=== PATIENT | male | born 1945 | race Caucasian/White ===

== ENCOUNTER 2020-04-01 09:19 | Outpatient (CLI) | payer MEDICARE, SELFPAY ==
[2020-04-01 09:31] LABS: Basophils Absolute Auto 0.03 K/mm3 (0.00-0.10); Basophils Percent Auto 0.4 % (0.0-1.0); Eosinophils Absolute Auto 0.12 K/mm3 (0.02-0.50); Eosinophils Percent Auto 1.8 % (1.0-6.0); Hematocrit 50.6 % (37.0-46.0); Hemoglobin 16.3 g/dL (12.4-15.3); Immature Granulocyte Absolute 0.02 K/mm3 (0.00-0.00); Immature Granulocyte Percent A 0.3 % (0.0-0.0); Lymphocytes Absolute Auto 1.36 K/mm3 (1.10-4.50); Lymphocytes Percent Auto 19.9 % (18.0-42.0); Mean Corpuscular HGB Conc 32.2 g/dL (32.0-36.0); Mean Corpuscular Hemoglobin 30.9 pg (27.0-31.0); Mean Platelet Volume 10.3 fl (8.7-11.0); Monocytes Absolute Auto 0.72 K/mm3 (0.10-0.90); Monocytes Percent Auto 10.5 % (2.0-11.0); Neutrophils Absolute Auto 4.6 K/mm3 (1.7-7.2); Neutrophils Percent Auto 67.1 % (50.0-70.0); Platelet Count Result 208 K/mm3 (150-420); Red Blood Count 5.27 M/mm3 (4.70-6.10); Red Cell Distribution Width 12.4 % (11.6-14.4); White Blood Count 6.8 K/mm3 (4.8-10.8)
[2020-04-01 10:19] LABS: Anion Gap 7 mmol/L (8-16); Blood Urea Nitrogen 13 mg/dL (7-18); Calcium 9.5 mg/dL (8.5-10.1); Carbon Dioxide 31 mmol/L (21-32); Chloride 101 mmol/L (98-108); Cholesterol 146 mg/dL (0-200); Estimated Glomerular Filt Rate > 60; Glucose 104 mg/dL (70-99); HDL Direct 49 mg/dL (40-60); LDL Cholesterol Calculated 73 mg/dL (<130); Osmolality Calculated 288 mOsm/kg (285-295); Potassium 4.8 mmol/L (3.5-5.1); Sodium 139 mmol/L (136-145); Triglycerides 119 mg/dL (0-150)
== END 2020-04-01 09:20 | disposition home or self-care (01) ==
LOC: CHSLAB 09:22
PROVIDERS: PCP Family Medicine; Visit Provider Family Medicine
DX: I10 Essential (primary) hypertension (principal)
CPT/HCPCS: 36415; 80048; 80061; 85025

== ENCOUNTER 2020-04-05 10:18 | Outpatient (CLI) | payer MEDICARE, SELFPAY ==
[2020-04-05 11:30] LABS: Vitamin B12 342 pg/mL (193-986)
[2020-04-05 11:32] LABS: Thyroid Stimulating Hormone Reflex 1.76 u/IU/mL (0.36-3.74)
[2020-04-05 11:33] LABS: Folic Acid > 20.0 ng/mL (8.6->20)
== END 2020-04-05 10:19 | disposition home or self-care (01) ==
LOC: CHSLAB 10:21
PROVIDERS: PCP Family Medicine; Visit Provider Family Medicine
DX: F03.90 Unspecified dementia, unspecified severity, without behavioral disturbance, psychotic disturbance, mood disturbance, and anxiety (principal); R41.89 Other symptoms and signs involving cognitive functions and awareness
CPT/HCPCS: 36415; 82607; 82746; 84443

== ENCOUNTER 2020-04-20 07:51 | Outpatient (CLI) | payer MEDICARE, SELFPAY | END 2020-04-20 07:52 | disposition home or self-care (01) | LOC: CHSIMG 07:55 | PROVIDERS: PCP Family Medicine; Visit Provider Family Medicine | DX: Z53.8 Procedure and treatment not carried out for other reasons (principal) | CPT/HCPCS: 99199 ==

== ENCOUNTER 2020-04-24 06:58 | Outpatient (CLI) | payer MEDICARE, SELFPAY ==
--- NOTE | ~2020-04-24 | MR_ITS ---
EXAMINATION: MR brain/brain stem wo/w con DATE: 04/24/2020 08:10 INDICATION: Signs and symptoms involving cognitive function. Short-term memory loss. Confusion. TECHNIQUE: Magnetic resonance imaging (MRI) of the brain and brainstem was performed without and with 20 mL MultiHance intravenous contrast. Sequences included sagittal and axial T1-weighted FSE, axial diffusion-weighted FS EPI, axial T2*-weighted GRE, axial T2-weighted FLAIR Propeller, and axial T2-we ighted Propeller. Postcontrast sequences included axial and coronal T1-weighted FSE. Apparent diffusi on coefficient (ADC) maps were created. COMPARISON: Head CT 04/11/2019 FINDINGS: There is diffuse brain volume loss. There are scattered areas of nonspecific increased T2-w eighted signal intensity in the cerebral white matter, which is within normal limits for the patient' s age. There is no intracranial hemorrhage, acute infarction, or abnormal intracranial mass lesion. T he ventricles are normal in size. There is mild mucosal thickening in the paranasal sinuses. The orbi ts are normal. The mastoid air cells are normal. IMPRESSION: 1. Normal aging brain. Reviewed, dictated and finalized at location B. 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 Normal aging brain.
== END 2020-04-24 06:59 | disposition home or self-care (01) ==
LOC: CHSIMG 07:00
PROVIDERS: PCP Family Medicine; Visit Provider Family Medicine
DX: R41.89 Other symptoms and signs involving cognitive functions and awareness (principal)
CPT/HCPCS: 70553

== ENCOUNTER 2021-04-28 07:32 | Outpatient (CLI) | payer MEDICARE, SELFPAY ==
--- NOTE | ~2021-04-28 | US_ITS ---
EXAMINATION: US venous doppler LE RT EXAM DATE: 04/28/2021 08:10 INDICATION: Swelling with elevated D-Dimer . TECHNIQUE: Multiple grayscale, color flow and Doppler images of the right lower extremity deep venous system were obtained and reviewed. There is no prior study for comparison. FINDINGS: The right common femoral, femoral and profunda veins demonstrate normal color flow, respira tory variation, augmentation and compressibility. Compressibility, color flow confirmed within the r ight popliteal, posterior tibial, peroneal, and greater saphenous veins. IMPRESSION: 1. No right lower extremity deep venous thrombosis. Reviewed, dictated and finalized at location B. [employer]
== END 2021-04-28 07:33 | disposition home or self-care (01) ==
LOC: CHSIMG 07:37
PROVIDERS: PCP Family Medicine; Visit Provider Family Medicine
DX: M79.89 Other specified soft tissue disorders (principal); R79.1 Abnormal coagulation profile
CPT/HCPCS: 93971

== ENCOUNTER 2021-05-01 09:19 | Outpatient (CLI) | payer MEDICARE, SELFPAY ==
--- NOTE | 2021-05-01 09:23 | ECHO_ITS ---
Patient Info Name: Oziel Cleary Age: 75 years : 1945 Gender: Male Ht: 71 in Wt: 270 lbs BSA: 2.52 m2 HR: 72 bpm BP: 107 / 68 mmHg Exam Date: 05/01/2021 10:54 AM Exam Location: [facility] Patient Status: Outpatient Admit Date: 05/01/2021 Staff Ordering Physician: Alex Cao DO Hotel Operation Manager: Pablo Castellon RDCS, RT Attending Provider: Alex Cao DO Referring Physician: Nash GIRALDO; Exam Type: CA echo dop color flow w con Study Info Indications I50.9 - Heart failure, unspecified Complete two-dimensional, color flow and Doppler transthoracic echocardiogram is performed with contrast to opacify the left ventricle and to improve the deliniation of the left ventricle endocardial borders. Summary 1. Left ventricular chamber dimension is moderately enlarged. 2. Definity contrast administered improved wall motion interpretation. 3. 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 4. Left ventricular systolic function is severely reduced, estimated at 25-30%. 5. The left ventricular diastolic function is grade II diastolic dysfunction. 6. E/e' 11 is mildly elevated. 7. Left atrial chamber dimension is mildly enlarged. 8. There is severe aortic valve sclerosis. 9. There is moderate aortic valve stenosis with a peak velocity of 263.03 cm/s, mean gradient of 16 mmHg, and aortic valve area of 1.04 cm2. Dimensionless index 0.31 suggest aortic valve stenosis is not severe. 10. The mitral valve has mildly calcified annulus. 11. There is mild mitral valve regurgitation. 12. There is mild tricuspid valve regurgitation. 13. Mild pulmonary hypertension, estimated pulmonary arterial systolic pressure is 41 mmHg. 14. There is trace pulmonic regurgitation. Left Ventricle Definity contrast administered improved wall motion interpretation. 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 E/e' 11 is mildly elevated. Left ventricular chamber dimension is moderately enlarged. Left ventricular systolic function is severely reduced, estimated at 25-30%. The left ventricular diastolic function is grade II diastolic dysfunction. Right Ventricle Right ventricular systolic function is normal based on normal TAPSE 1.9 cm. Right ventricular chamber dimension is not well visualized. Left Atria Left atrial chamber dimension is mildly enlarged. Right Atria Right atrial chamber dimension is not well visualized. Aortic Valve There is moderate aortic valve stenosis with a peak velocity of 263.03 cm/s, mean gradient of 16 mmHg, and aortic valve area of 1.04 cm2. Dimensionless index 0.31 suggest aortic valve stenosis is not severe. The aortic valve is trileaflet. There is severe aortic valve sclerosis. There is no aortic valve regurgitation. Pulmonic Valve There is trace pulmonic regurgitation. Mitral Valve The mitral valve has mildly calcified annulus. There is no mitral valve stenosis. There is mild mitral valve regurgitation. Tricuspid Valve There is mild tricuspid valve regurgitation. Mild pulmonary hypertension, estimated pulmonary arterial systolic pressure is 41 mmHg. Pericardium/Pleural There is no pericardial effusion. Inferior Vena Cava Normal inferior vena cava with >50% collapse upon inspiration consistent with normal right atrial pressure, 5 mmHg. Aorta The aortic root size at the sinus of Valsalva is normal. Left Ventricular Outflow Tract
== END 2021-05-01 09:20 | disposition home or self-care (01) ==
PROVIDERS: PCP Family Medicine; Visit Provider Family Medicine
DX: I50.9 Heart failure, unspecified (principal)
CPT/HCPCS: C8929

== ENCOUNTER 2022-01-21 18:03 | Outpatient (CLI) | payer MEDICARE, SELFPAY ==
--- NOTE | ~2022-01-21 | XR_ITS ---
EXAM: XR foot RT 2V DATE: 01/21/2022 18:22 HISTORY: All over RT foot pain/swollen x 4-5 days . COMPARISON: None available. FINDINGS: Decreased mineralization. Transverse fracture of the proximal right fifth metatarsal, 1.5 cm from the end of the tuberosity (borderline between avulsion and Solo type fractures), fracture li ne appears to be proximal to the intermetatarsal joint (a feature of avulsion fractures), with 3 mm d istraction. No lytic or blastic lesion. Joint spaces are maintained. No erosion or periosteal change. Soft tissues within normal limits. IMPRESSION: Mildly distracted transverse fracture of the proximal right fifth metatarsal, probably an avulsion, but a Solo fracture is also possible. An oblique view of the right foot would be helpful for further evaluation. Reviewed, dictated and finalized at location K. IMPRESSION: Mildly distracted transverse fracture of the proximal right fifth m etatarsal, probably an avulsion, but a Solo fracture is also possible. An obli que view of the right foot would be helpful for further evaluation.
== END 2022-01-21 18:04 | disposition home or self-care (01) ==
LOC: CHSIMG 18:05
PROVIDERS: PCP Family Medicine; Visit Provider Nurse Practitioner Family
DX: M79.671 Pain in right foot (principal); M79.89 Other specified soft tissue disorders
CPT/HCPCS: 73620

== ENCOUNTER 2022-02-09 08:51 | Outpatient (CLI) | payer MEDICARE, SELFPAY ==
--- NOTE | ~2022-02-09 | XR_ITS ---
EXAM: XR foot RT min 3V DATE: 02/09/2022 09:11 HISTORY: F/U FX RT foot base pf 5th 1mo ago . COMPARISON: 01/21/2022. FINDINGS: Decreased mineralization. Increasing distraction of the transverse fracture of the proxima l right fifth metatarsal. In the oblique view the fracture line does not definitively involve the int ermetatarsal joint indicating most likely represents an avulsion-type fracture. No lytic or blastic l esion. Moderate hallux valgus. Plantar enthesopathy. No erosion or periosteal change. Vascular calcif ications. IMPRESSION: Increased distraction of the transverse proximal fifth metatarsal fracture. Reviewed, dictated and finalized at location K. IMPRESSION: Increased distraction of the transverse proximal fifth metatarsal f kennedy.
== END 2022-02-09 08:52 | disposition home or self-care (01) ==
LOC: CHSIMG 08:55
PROVIDERS: PCP Family Medicine; Visit Provider Orthopaedic Surgery
DX: M79.671 Pain in right foot (principal)
CPT/HCPCS: 73630

== ENCOUNTER 2022-02-24 13:16 | Outpatient (CLI) | payer MEDICARE, SELFPAY ==
[2022-02-24 14:13] LABS: Anion Gap 7 mmol/L (8-16); Blood Urea Nitrogen 31 mg/dL (7-18); Calcium 9.1 mg/dL (8.5-10.1); Carbon Dioxide 30 mmol/L (21-32); Chloride 101 mmol/L (98-108); Estimated Glomerular Filt Rate 40; Glucose 98 mg/dL (70-99); Osmolality Calculated 292 mOsm/kg (285-295); Potassium 4.7 mmol/L (3.5-5.1); Sodium 138 mmol/L (136-145)
== END 2022-02-24 13:17 | disposition home or self-care (01) ==
LOC: CHSLAB 13:20
PROVIDERS: PCP Orthopaedic Surgery; Visit Provider Internal Medicine Cardiovascular Disease
DX: I50.20 Unspecified systolic (congestive) heart failure (principal)
CPT/HCPCS: 36415; 80048

== ENCOUNTER 2022-04-08 10:40 | Outpatient (CLI) | payer MEDICARE, SELFPAY ==
[2022-04-08 11:26] LABS: Anion Gap 8 mmol/L (8-16); Blood Urea Nitrogen 21 mg/dL (7-18); Carbon Dioxide 27 mmol/L (21-32); Chloride 105 mmol/L (98-108); Estimated Glomerular Filt Rate 51; Glucose 107 mg/dL (70-99); Osmolality Calculated 293 mOsm/kg (285-295); Potassium 4.2 mmol/L (3.5-5.1); Sodium 140 mmol/L (136-145)
== END 2022-04-08 10:41 | disposition home or self-care (01) ==
LOC: CHSLAB 10:42
PROVIDERS: PCP Family Medicine; Visit Provider Internal Medicine Cardiovascular Disease
DX: I50.20 Unspecified systolic (congestive) heart failure (principal)
CPT/HCPCS: 36415; 80048

== ENCOUNTER 2022-07-14 11:28 | Outpatient (CLI) | payer MEDICARE, SELFPAY ==
[2022-07-14 12:42] LABS: Anion Gap 8 mmol/L (8-16); Blood Urea Nitrogen 22 mg/dL (7-18); Calcium 8.8 mg/dL (8.5-10.1); Carbon Dioxide 31 mmol/L (21-32); Chloride 103 mmol/L (98-108); Estimated Glomerular Filt Rate 44; Glucose 108 mg/dL (70-99); Osmolality Calculated 298 mOsm/kg (285-295); Potassium 4.2 mmol/L (3.5-5.1); Sodium 142 mmol/L (136-145)
== END 2022-07-14 11:29 | disposition home or self-care (01) ==
PROVIDERS: PCP Family Medicine; Visit Provider Internal Medicine Cardiovascular Disease
DX: I50.20 Unspecified systolic (congestive) heart failure (principal); N18.30 Chronic kidney disease, stage 3 unspecified
CPT/HCPCS: 36415; 80048

== ENCOUNTER 2022-11-26 23:18 | Emergency (ER) | payer MEDICARE, SELFPAY ==
[2022-11-26 23:23] VITALS: BP 114/55; PULSE 80; RESP 20; TEMP 36.7; O2SAT 95
[2022-11-26 23:29] VITALS: BP 104/59; PULSE 68
--- NOTE | 2022-11-26 23:29 | ED.DIZZY ---
HPI - Dizziness General Chief Complaint: Dizziness Stated Complaint: dizziness and weakness Source: patient and family Mode of arrival: ambulatory History of Present Illness HPI Narrative: this is a 76-year-old male that presents with his after he had an episode of dizziness about an hour so will go in wanted to come to the emergency room to be evaluated. Patient has a history of congestive heart failure recently had his dosage of Entresto adjusted and Lasix. Patient with a history of dementia he is on Aricept. Otherwise denies chest pain, no shortness of breath no abdominal pain currently denies being dizzy and states that he has some sinus congestion with no sinus pressure no ear pressure no fever chills. MD elicited complaint: dizziness Onset (ago): hour(s) Timing: sudden onset Severity: mild Related Data Home Medications Medication Instructions Recorded Confirmed aspirin 81 mg tablet,delayed 324 mg PO DAILY 11/26/22 11/26/22 release sacubitril 49 mg-valsartan 51 mg 1 tablet PO BID 11/26/22 11/26/22 tablet (Entresto) Allergies Allergy/AdvReac Type Severity Reaction Status Date / Time acetaminophen [Vicodin] Allergy Intermediate Unknown Verified 02/09/22 09:55 hydrocodone [Vicodin] Allergy Intermediate Unknown Verified 02/09/22 09:55 Review of Systems Review of Systems: All systems reviewed & are unremarkable except as noted in HPI and below PMFSH Past Medical History Medical History BMI greater than 30 (11/22/17) BPH (benign prostatic hyperplasia) CAD (coronary artery disease) CHF (congestive heart failure) Cognitive decline COPD (chronic obstructive pulmonary disease) Dementia Fracture of 5th metatarsal Hyperlipidemia Hyperlipidemia (11/22/17) Hypertension Hypertension (11/22/17) Insomnia Myocardial infarction CALEB (obstructive sleep apnea) Overweight Right ankle pain Sleep disorder SOB (shortness of breath) on exertion Surgical History Surgical History Hx of CABG Family History Family History Other Alzheimer disease Diabetes mellitus Family history of coronary artery disease HLD (hyperlipidemia) Heart disease Hypertension Social History Social History Smoking status: Former smoker Tobacco type: cigarettes Additional smoking assessment comments: Quit 2005 Alcohol intake: current Substance use type: does not use Living arrangements: with family Additional living arrangements comments: . 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 Gender identity (if verbalized by the patient): Male Exam Const: General: healthy appearing Nutritional Appearance: well nourished Orientation/consciousness: patient oriented x3 Limitations: no limitations HENMT: Head: normal to inspection Eyes: Conjunctivae: conjunctivae normal Neck: Neck: normal visual inspection Chest: Chest palpation & inspection: normal inspection of the chest Resp: Effort & Inspection: normal respiratory effort Auscultation: clear to auscultation bilaterally Cardio: Rate: regular rate Rhythm: regular rhythm GI: Auscultation: normal bowel sounds Back/Spine/Pelvis: Back: no CVA tenderness Skin: General skin exam: normal color Rashes: no rashes Wounds: no wounds Neuro: General: moves all extremities Cranial nerves: Yes Nystagmus not present Speech: normal speech Extrem: General: normal to inspection Psych: Mental Status: mental status grossly normal Affect: normal affect Attitude: cooperative Course Course Emergency Course: EKG performed which shows sinus rhythm at a rate of 67 with a first-degree AV block, labs reviewed with patient and orthostatics were checked, patient is not orthos
[2022-11-26 23:33] VITALS: BP 109/70; PULSE 74
[2022-11-26 23:36] VITALS: BP 105/60; PULSE 76
[2022-11-27 00:01] LABS: Basophils Absolute Auto 0.04 K/mm3 (0.00-0.10); Basophils Percent Auto 0.6 % (0.0-1.0); Eosinophils Absolute Auto 0.18 K/mm3 (0.02-0.50); Eosinophils Percent Auto 2.8 % (1.0-6.0); Hematocrit 37.8 % (37.0-46.0); Hemoglobin 12.4 g/dL (12.4-15.3); Immature Granulocyte Absolute 0.02 K/mm3 (0.00-0.00); Immature Granulocyte Percent A 0.3 % (0.0-0.0); Lymphocytes Absolute Auto 1.39 K/mm3 (1.10-4.50); Lymphocytes Percent Auto 21.5 % (18.0-42.0); Mean Corpuscular HGB Conc 32.8 g/dL (32.0-36.0); Mean Corpuscular Hemoglobin 32.3 pg (27.0-31.0); Mean Corpuscular Volume 98.4 fL (78.0-102.0); Mean Platelet Volume 10.5 fl (8.7-11.0); Monocytes Absolute Auto 0.88 K/mm3 (0.10-0.90); Monocytes Percent Auto 13.6 % (2.0-11.0); Neutrophils Percent Auto 61.2 % (50.0-70.0); Platelet Count Result 162 K/mm3 (150-420); Red Blood Count 3.84 M/mm3 (4.70-6.10); White Blood Count 6.5 K/mm3 (4.8-10.8)
--- NOTE | 2022-11-27 00:01 | ECG_ITS ---
Measurements Intervals [place] Rate: 67 P: 49 AL: 210 QRS: 268 QRSD: 176 T: 65 QT: 425 QTc: 449 Interpretive Statements SINUS RHYTHM WITH FIRST DEGREE AV BLOCK WITH OCCASIONAL SUPRAVENTRICULAR PREMATURE COMPLEXES INDETERMINATE AXIS RIGHT BUNDLE BRANCH BLOCK ANTEROLATERAL MYOCARDIAL INFARCTION , OF INDETERMINATE AGE [40+ ms Q WAVE IN I/aVL/V3- V6] ABNORMAL ECG NO PREVIOUS ECG AVAILABLE FOR COMPARISON Electronically Signed On 11-27-2022 13:45:58 CDT by Darius Chávez M.D.
[2022-11-27 00:22] LABS: Alanine Aminotransferase 25 U/L (16-63); Albumin Level 3.3 g/dL (3.4-5.0); Alkaline Phosphatase 54 U/L (46-116); Anion Gap 8 mmol/L (8-16); Aspartate Amino Transferase 21 U/L (15-37); Bilirubin,Total 0.5 mg/dL (0.00-1.00); Blood Urea Nitrogen 31 mg/dL (7-18); Calcium 8.7 mg/dL (8.5-10.1); Carbon Dioxide 29 mmol/L (21-32); Chloride 104 mmol/L (98-108); Estimated CRCL calculation 39 ml/min; Estimated Glomerular Filt Rate 47; Glucose 104 mg/dL (70-99); NT Pro B Type Natriuretic Pept 324 pg/mL (0-450); Osmolality Calculated 298 mOsm/kg (285-295); Potassium 3.6 mmol/L (3.5-5.1); Sodium 141 mmol/L (136-145); Total Protein 6.4 g/dL (6.4-8.2); Troponin I 13.8 ng/L (0.00-60.4)
[2022-11-27 00:32] VITALS: BP 110/60; PULSE 68; RESP 20; TEMP 37.2; O2SAT 95
== END 2022-11-27 00:35 | disposition home or self-care (01) ==
PROVIDERS: Emergency Provider Emergency Medicine; PCP Family Medicine
DX: R42 Dizziness and giddiness (principal); I11.0 Hypertensive heart disease with heart failure; I50.9 Heart failure, unspecified; I25.10 Atherosclerotic heart disease of native coronary artery without angina pectoris; J44.9 Chronic obstructive pulmonary disease, unspecified; F03.90 Unspecified dementia, unspecified severity, without behavioral disturbance, psychotic disturbance, mood disturbance, and anxiety; E78.5 Hyperlipidemia, unspecified; Z79.82 Long term (current) use of aspirin; Z87.891 Personal history of nicotine dependence
CPT/HCPCS: 36415; 80053; 83880; 84484; 85025; 93005; 99284

== ENCOUNTER 2023-01-23 10:13 | Outpatient (CLI) | payer MEDICARE, SELFPAY ==
--- NOTE | ~2023-01-23 | MR_ITS ---
EXAMINATION: MR brain IAC wo con DATE: 01/23/2023 11:27 INDICATION: Unspecified dementia. TECHNIQUE: Magnetic resonance imaging (MRI) of the brain, brainstem, and internal auditory canals was performed without intravenous contrast. COMPARISON: Brain MRI 04/24/20 FINDINGS: There are scattered areas of nonspecific increased T2-weighted signal intensity in the cere bral white matter, which is within normal limits for the patient's age. There is no intracranial hemo rrhage, acute infarction, or abnormal intracranial mass lesion. The ventricles are normal in size. Th ere is a left mastoid effusion. There is mucosal thickening in the paranasal sinuses. The orbits are normal. IMPRESSION: 1. Normal aging brain. Reviewed, dictated and finalized at location E. IMPRESSION: 1. Normal aging brain.
== END 2023-01-23 10:14 | disposition home or self-care (01) ==
LOC: CHSIMG 10:13
PROVIDERS: PCP Family Medicine; Visit Provider Family Medicine
DX: F03.90 Unspecified dementia, unspecified severity, without behavioral disturbance, psychotic disturbance, mood disturbance, and anxiety (principal)
CPT/HCPCS: 70551

== ENCOUNTER 2024-05-18 07:05 | Outpatient (CLI) | payer MEDICARE, SELFPAY ==
--- NOTE | ~2024-05-18 | MR_ITS ---
EXAMINATION: MR brain/brain stem wo con DATE: 05/18/2024 08:13 INDICATION: Unspecified dementia, unspecified severity. TECHNIQUE: Magnetic resonance imaging (MRI) of the brain and brainstem was performed without intraven ous contrast. COMPARISON: Brain MRI 01/23/2023, head CT 04/11/2019 FINDINGS: There is diffuse brain volume loss. There are scattered areas of nonspecific increased T2-w eighted signal intensity in the cerebral white matter, which is within normal limits for the patient' s age. There is no intracranial hemorrhage, acute infarction, or abnormal intracranial mass lesion. T he ventricles are normal in size. There is mucosal thickening in the paranasal sinuses. The orbits ar e normal. There is a left mastoid effusion. IMPRESSION: 1. Normal aging brain. Reviewed, dictated and finalized at location A. 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 Normal aging brain.
[2024-05-18 07:30] LABS: Basophils Absolute Auto 0.05 K/mm3 (0.00-0.10); Basophils Percent Auto 0.6 % (0.0-1.0); Eosinophils Absolute Auto 0.22 K/mm3 (0.02-0.50); Eosinophils Percent Auto 2.9 % (1.0-6.0); Hematocrit 44.8 % (37.0-46.0); Hemoglobin 14.9 g/dL (12.4-15.3); Immature Granulocyte Absolute 0.01 K/mm3 (0.00-0.00); Immature Granulocyte Percent A 0.1 % (0.0-0.0); Lymphocytes Absolute Auto 1.58 K/mm3 (1.10-4.50); Lymphocytes Percent Auto 20.5 % (18.0-42.0); Mean Corpuscular HGB Conc 33.3 g/dL (32-36); Mean Corpuscular Hemoglobin 31.4 pg (27.0-31.0); Mean Corpuscular Volume 94.3 fL (78.0-102.0); Mean Platelet Volume 10.6 fl (8.7-11.0); Monocytes Absolute Auto 0.81 K/mm3 (0.10-0.90); Monocytes Percent Auto 10.5 % (2.0-11.0); Neutrophils Absolute Auto 5.04 K/mm3 (1.70-7.20); Neutrophils Percent Auto 65.4 % (50.0-70.0); Platelet Count Result 181 K/mm3 (150-420); Red Blood Count 4.75 M/mm3 (4.70-6.10); White Blood Count 7.7 K/mm3 (4.8-10.8)
[2024-05-18 09:01] LABS: Alanine Aminotransferase 28 U/L (16-63); Albumin Level 3.6 g/dL (3.4-5.0); Alkaline Phosphatase 62 U/L (46-116); Anion Gap 9 mmol/L (4-12); Aspartate Amino Transferase 23 U/L (15-37); Bilirubin,Total 0.7 mg/dL (0.00-1.00); Blood Urea Nitrogen 25 mg/dL (7-18); Calcium 9.2 mg/dL (8.5-10.1); Carbon Dioxide 30 mmol/L (21-32); Chloride 103 mmol/L (98-108); Cholesterol 130 mg/dL (0-200); Estimated Glomerular Filt Rate 43; Glucose 90 mg/dL (70-99); HDL Direct 45 mg/dL (40-60); LDL Cholesterol Calculated 68 mg/dL (<130); Osmolality Calculated 298 mOsm/kg (285-295); Potassium 4.1 mmol/L (3.5-5.1); Sodium 142 mmol/L (136-145); Total Protein 6.6 g/dL (6.4-8.2); Triglycerides 86 mg/dL (0-150); Vitamin B12 443 pg/mL (193-986)
[2024-05-18 09:04] LABS: Thyroid Stimulating Hormone Reflex 3.12 u/IU/mL (0.36-3.74)
[2024-05-18 09:04] LABS: Folic Acid > 20.0 ng/mL (8.6->20)
== END 2024-05-18 07:06 | disposition home or self-care (01) ==
PROVIDERS: PCP Family Medicine; Visit Provider Family Medicine
DX: E03.9 Hypothyroidism, unspecified (principal); E53.8 Deficiency of other specified B group vitamins; E66.3 Overweight; F03.90 Unspecified dementia, unspecified severity, without behavioral disturbance, psychotic disturbance, mood disturbance, and anxiety
CPT/HCPCS: 36415; 70551; 80053; 80061; 82607; 82746; 84443; 85025